=== PATIENT | female | born 1975 | race Caucasian/White ===

== ENCOUNTER 2022-08-27 16:30 | Emergency (ER) | payer BC ==
[2022-08-27 16:48] VITALS: BP 133/84; TEMP 97
--- NOTE | 2022-08-27 17:25 | ED ---
Abdominal Pain HPI - General Source: patient, RN notes reviewed Mode of arrival: wheelchair Limitations: no limitations <ShainaMarylou - Last Filed: 08/27/22 17:24> <Woody Troncoso - Last Filed: 08/28/22 06:05> - General Chief Complaint: Abdominal Pain Stated Complaint: Throat swelling Time Seen by Provider: 08/27/22 17:24 - History of Present Illness Initial Comments: Medical screening exam: Patient is a 47-year-old female presents to the emergency department with multiple complaints. Patient reports swelling and throat pain for the past 4 weeks. Denies injury. Describes the pain as a consistent pressure in her neck. States she had a CT of her neck at [facility] a couple weeks ago which was normal. States she has been following with her primary care provider who has been unable to diagnose her with any condition. She denies fever, chills,upper respiratory symptoms, trouble swallowing, pain with swallowing, drooling. Denies history of tobacco use. Reports occasional alcohol use. Denies family history of mouth and throat cancers. Does report intermittent history of GERD. Also reports using NSAIDs consistently for about 2 months. No chest pain or shortness of breath. Patient also reports a cramping abdominal pain in her upper abdomen with nausea. Patient feels that she is bloated. No vomiting, no diarrhea. (Marylou Merritt) This is a 47-year-old female with a past medical history including chronic back pain presents emergency department for throat pain and swelling. The patient stated that she initially had this symptom that started on [place] and she was seen at [facility]. A full workup including computed tomography scan was obtained and was normal. The patient was to follow-up with her primary care physician as well as the ENT however she did only follow-up with her primary care physician who "was not doing anything for her and not helping with things." The patient stated that her symptoms continued and worsened of the last several days and she felt as if she had trouble swallowing. The patient stated that this is continued in going on and she was concerned because she still had symptoms. 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 The patient has been off and on different NSAIDs as well as muscle relaxers for this however no relief has been obtained. The patient was however resting in bed comfortably with normal vital signs on my evaluation. The patient was not in any respiratory distress on my evaluation. (Woody Troncoso) - Related Data Previous Rx's Medication Instructions Recorded Famotidine [Pepcid] 20 mg PO BID #30 tablet 08/27/22 Ketorolac [Toradol] 10 mg PO TID #45 tab 08/27/22 dexAMETHasone [Decadron] 10 mg PO ONCE #2.5 tablet 08/27/22 Allergies Allergy/AdvReac Type Severity Reaction Status Date / Time azithromycin Allergy Rapid Verified 08/27/22 16:50 [From Zithromax Z-Tonio] Heart Rate Fish Containing Products Allergy Rapid Verified 08/27/22 16:50 [Fish] Heart Rate iodine Allergy Rash/Hives Verified 08/27/22 16:48 NSAIDS (Non-Steroidal Allergy Swelling Verified 08/27/22 16:50 Anti-Inflamma terbinafine Allergy Hallucinati Verified 08/27/22 16:50 ons Review of Systems ROS Other: All systems not noted in ROS Statement are negative. <Marylou Merritt - Last Filed: 08/27/22 17:24> ROS Other: All systems not noted in ROS Statement are negative. <Woody Troncoso - Last Filed: 08/28/22 06:05> ROS Statement: Those systems with pertinent positive or pertinent negative responses have been documented in the HPI. Past Medical History Past Medical History: CVA/TIA History of Any Multi-Drug Resistant Organisms: None Reported Additional Past Surgical History / Comment(s): pfo closure Past Psychological History: No Psychological Hx Reported Smoking Status: Never smoker Past Alcohol Use History: None Reported Past Drug Use History: None Reported <Marylou Merritt - Last Filed: 08/27/22 17:24> General Exam Limitations: no limitations <Marylou Merritt - Last Filed: 08/27/22 17:24> Limitations: no limitations General appearance: alert, in no apparent distress Head exam: Present: atraumatic, normocephalic, normal inspection Eye exam: Present: normal appearance, PERRL Pupils: Present: normal accommodation ENT exam: Present: normal exam, normal oropharynx, mucous membranes moist Neck exam: Present: normal inspection, full ROM Respiratory exam: Present: normal lung sounds bilaterally Cardiovascular Exam: Present: regular rate, normal rhythm, normal heart sounds GI/Abdominal exam: Present: soft, normal bowel sounds Extremities exam: Present: normal inspection, full ROM Back exam: Present: tenderness (Tenderness noted throughout her back secondary to her baseline chronic back pain.) Neurological exam: Present: alert, oriented X3, CN II-XII intact Psychiatric exam: Present: normal affect, normal mood Skin exam: Present: warm, dry <Woody Troncoso - Last Filed: 08/28/22 06:05> Course Vital Signs 08/27/22 08/28/22 16:43 00:04 Temperature 97 F L Pulse Rate 100 86 Respiratory 20 18 Rate Blood Pressure 133/84 O2 Sat by Pulse 99 95 Oximetry Medical Decision Making - Lab Data Result diagrams: 08/27/22 20:00 08/27/22 20:00 <Woody Troncoso - Last Filed: 08/28/22 06:05> - Medical Decision Making Was pt. sent in by a medical professional or institution (, PA, SPORT PSYCHOLOGIST, urgent care, hospital, or care home...) When possible be specific @ -No Did you speak to anyone other than the patient for history (EMS, parent, family, police, friend...)? What history was obtained from this source @ -Yes, patient's Did you review nursing and triage notes (agree or disagree)? Why? @ -I reviewed and agree with nursing and triage notes Were old charts reviewed (outside hosp., previous admission, EMS record, old EK G, old radiological studies, urgent care reports/EKG's, care home records)? Report findings @ -No old charts were reviewed Differential Diagnosis (chest pain, altered mental status, abdominal pain women, abdominal pain men, vaginal bleeding, weakness, fever, dyspnea, syncope, headache, dizziness, GI bleed, back pain, seizure, CVA, palpatations, mental health)? @ -Angioedema, neck swelling, soft tissue edema EKG interpreted by me (3pts min.). @ -None X-rays interpreted by me (1pt min.). @ -X-rays of the soft tissues of the neck was obtained and was interpreted by myself showing a narrowed posterior nasopharynx area but could relate to some posterior edema of the soft palate. There is no epiglottis. Due to this, a CT of the soft tissues of the neck was obtained. CT interpreted by me (1pt min.). @ -Soft tissues of the neck was obtained and was interpreted by myself showing a negative scan of the soft tissues. There was no discrete neck mass seen. U/S interpreted by me (1pt. min.). @ -None done What testing was considered but not performed or refused? (CT, X-rays, U/S, labs)? Why? @ -None What meds were considered but not given or refused? Why? @ -None Did you discuss the management of the patient with other professionals (professionals i.e. , PA, SPORT PSYCHOLOGIST, lab, RT, psych nurse, psychologist social, finance effectiveness manager, teacher, credit risk officer, watch case polisher)? Give summary @ -No Was smoking cessation discussed for >3mins.? @ -No Was critical care preformed (if so, how long)? @ -No Were there social determinants of health that impacted care today? How? (Homelessness, low income, unemployed, alcoholism, drug addiction, transportation, low edu. Level, literacy, decrease access to med. care, fdc, rehab)? @ -No Was there de-escalation of care discussed even if they declined (Discuss DNR or withdrawal of care, Hospice)? DNR status @ -No What co-morbidities impacted this encounter? (DM, HTN, Smoking, COPD, CAD, Cancer, CVA, ARF, Chemo, Hep., AIDS, mental health diagnosis, sleep apnea, morbid obesity)? @ -Chronic back pain Was patient admitted / discharged? Hospital course, mention meds given and route, prescriptions, significant lab abnormalities, going to OR and other pertinent info. @ -The patient was seen and evaluated in the emergency department. Physical exam, the patient was resting in bed without any obvious distress or any shortness of breath or airway compromise. All imaging and laboratory workup was within normal limits and negative. The patient did not have an etiology determined for her feelings of throat swelling. The patient had normal vital signs throughout and denied of any compromise of her airway. The patient did receive medications including Decadron, Pepcid and Toradol and she was also given a prescription for these. The patient was advised to follow-up with ENT for further workup and evaluation. The patient was deemed stable for discharge. Both the patient and her were agreeable with this plan and all other questions were answered. The patient was discharged home in stable condition with her . Undiagnosed new problem with uncertain prognosis? @ -No Drug Therapy requiring intensive monitoring for toxicity (Heparin, Nitro, Insulin, Cardizem)? @ -No Were any procedures done? @ -No Diagnosis/symptom? @ -Throat swelling sensation, NOS Acute, or Chronic, or Acute on Chronic? @ -Acute on chronic Uncomplicated (without systemic symptoms) or Complicated (systemic symptoms)? @ -Uncomplicated Side effects of treatment? @ -No Exacerbation, Progression, or Severe Exacerbation? @ -No Poses a threat to life or bodily function? How? (Chest pain, USA, AR, pneumonia, PE, COPD, DKA, ARF, appy, cholecystitis, CVA, Diverticulitis, Homicidal, Suicidal, threat to staff... and all critical care pts) @ -No (Woody Troncoso) - Lab Data Lab Results 08/27/22 08/27/22 08/27/22 Range/Units 20:00 20:00 20:00 WBC 10.7 H (3.8-10.6) k/uL RBC 4.91 (3.80-5.40) m/uL Hgb 15.4 (11.4-16.0) gm/dL Hct 43.6 (34.0-46.0) % MCV 88.7 (80.0-100.0) fL MCH 31.3 (25.0-35.0) pg MCHC 35.3 (31.0-37.0) g/dL RDW 13.0 (11.5-15.5) % Plt Count 173 (150-450) k/uL MPV 7.4 Neutrophils % 90 % Lymphocytes % 7 % Monocytes % 2 % Eosinophils % 1 % Basophils % 0 % Neutrophils # 9.6 H (1.3-7.7) k/uL Lymphocytes # 0.7 L (1.0-4.8) k/uL Monocytes # 0.3 (0-1.0) k/uL Eosinophils # 0.1 (0-0.7) k/uL Basophils # 0.0 (0-0.2) k/uL Sodium (137-145) mmol/L Potassium (3.5-5.1) mmol/L Chloride (98-107) mmol/L Carbon Dioxide (22-30) mmol/L Anion Gap mmol/L BUN (7-17) mg/dL Creatinine (0.52-1.04) mg/dL Est GFR (CKD-EPI)AfAm (>60 ml/min/1.73 sqM) Est GFR (CKD-EPI)NonAf (>60 ml/min/1.73 sqM) Glucose (74-99) mg/dL Calcium (8.4-10.2) mg/dL Total Bilirubin (0.2-1.3) mg/dL AST (14-36) U/L ALT (4-34) U/L Alkaline Phosphatase (38-126) U/L Total Protein (6.3-8.2) g/dL Albumin (3.5-5.0) g/dL Lipase (23-300) U/L Heterophile Antibody Negative (Negative) Influenza Type A (PCR) (Not Detectd) Influenza Type B (PCR) (Not Detectd) RSV (PCR) (Not Detectd) SARS-CoV-2 (PCR) (Not Detectd) Group A Strep (PCR) NOT DETECTED (Not Detectd) 08/27/22 08/27/22 Range/Units 20:00 20:00 WBC (3.8-10.6) k/uL RBC (3.80-5.40) m/uL Hgb (11.4-16.0) gm/dL Hct (34.0-46.0) % MCV (80.0-100.0) fL MCH (25.0-35.0) pg MCHC (31.0-37.0) g/dL RDW (11.5-15.5) % Plt Count (150-450) k/uL MPV Neutrophils % % Lymphocytes % % Monocytes % % Eosinophils % % Basophils % % Neutrophils # (1.3-7.7) k/uL Lymphocytes # (1.0-4.8) k/uL Monocytes # (0-1.0) k/uL Eosinophils # (0-0.7) k/uL Basophils # (0-0.2) k/uL Sodium 137 (137-145) mmol/L Potassium 3.9 (3.5-5.1) mmol/L Chloride 102 (98-107) mmol/L Carbon Dioxide 27 (22-30) mmol/L Anion Gap 8 mmol/L BUN 13 (7-17) mg/dL Creatinine 1.02 (0.52-1.04) mg/dL Est GFR (CKD-EPI)AfAm 77 (>60 ml/min/1.73 sqM) Est GFR (CKD-EPI)NonAf 67 (>60 ml/min/1.73 sqM) Glucose 104 H (74-99) mg/dL Calcium 9.7 (8.4-10.2) mg/dL Total Bilirubin 1.1 (0.2-1.3) mg/dL AST 43 H (14-36) U/L ALT 47 H (4-34) U/L Alkaline Phosphatase 80 (38-126) U/L Total Protein 6.7 (6.3-8.2) g/dL Albumin 4.2 (3.5-5.0) g/dL Lipase 104 (23-300) U/L Heterophile Antibody (Negative) Influenza Type A (PCR) Not Detected (Not Detectd) Influenza Type B (PCR) Not Detected (Not Detectd) RSV (PCR) Not Detected (Not Detectd) SARS-CoV-2 (PCR) Not Detected (Not Detectd) Group A Strep (PCR) (Not Detectd) Disposition <Marylou Merritt - Last Filed: 08/27/22 17:24> Is patient prescribed a controlled substance at d/c from ED?: No Time of Disposition: 23:45 <Woody Troncoso - Last Filed: 08/28/22 06:05> Clinical Impression: Neck swelling Disposition: HOME SELF-CARE Condition: Stable Instructions (If sedation given, give patient instructions): Shortness of Breath (ED) Prescriptions: dexAMETHasone [Decadron] 10 mg PO ONCE #2.5 tablet Famotidine [Pepcid] 20 mg PO BID #30 tablet Ketorolac [Toradol] 10 mg PO TID #45 tab Referrals: Yifan Quinones MD [Primary Care Provider] - 1-2 days Romeo Nevarez DO [Doctor of Osteopathic Medicine] - 1-2 days
--- NOTE | 2022-08-27 19:33 | XR ---
EXAMINATION TYPE: XR soft tissue neck DATE OF EXAM: 08/27/2022 COMPARISON: NONE HISTORY: Throat swelling TECHNIQUE: 2 views FINDINGS: Epiglottis is normal. Subglottic trachea is normal. Cervical vertebra have normal alignment . Prevertebral soft tissues appear normal. Tonsils and adenoids appear normal. There is narrowing of the posterior nasopharyngeal airway. IMPRESSION: There is narrowed posterior nasopharynx airway but could relate to some posterior edema o f the soft palate. Normal epiglottis.
[2022-08-27 20:10] LABS: Basophils % (A) 0 %; Eosinophils # (A) 0.1 k/uL (0-0.7); Eosinophils % (A) 1 %; HCT 43.6 % (34.0-46.0); HGB 15.4 gm/dL (11.4-16.0); Lymphocytes # (A) 0.7 k/uL (1.0-4.8); Lymphocytes % (A) 7 %; MCH 31.3 pg (25.0-35.0); MCHC 35.3 g/dL (31.0-37.0); MCV 88.7 fL (80.0-100.0); Mean Platelet Volume 7.4; Monocytes # (A) 0.3 k/uL (0-1.0); Monocytes % (A) 2 %; Neutrophils # (A) 9.6 k/uL (1.3-7.7); Neutrophils % (A) 90 %; Platelet Count 173 k/uL (150-450); RBC 4.91 m/uL (3.80-5.40); WBC 10.7 k/uL (3.8-10.6)
[2022-08-27 20:25] LABS: Albumin 4.2 g/dL (3.5-5.0); Calcium 9.7 mg/dL (8.4-10.2); Potassium 3.9 mmol/L (3.5-5.1); Total Bilirubin 1.1 mg/dL (0.2-1.3); Total Protein 6.7 g/dL (6.3-8.2)
[2022-08-27] MEDS ORDERED: KETOROLAC 15 MG/ML 1 ML VIAL IVP STA (22:56)
[2022-08-27] MEDS ORDERED: DEXAMETHASONE SOD PHOSPHATE 10 MG/ML 1 ML VIAL IVP STA (22:56)
[2022-08-27] MEDS ORDERED: FAMOTIDINE 20 MG/2 ML VIAL IV STA (22:56)
--- NOTE | 2022-08-27 23:30 | CT ---
EXAMINATION TYPE: CT soft tissue neck wo con DATE OF EXAM: 08/27/2022 COMPARISON: None HISTORY: sore throat CT DLP: 159.8 mGycm Automated exposure control for dose reduction was used. Images obtained from the thoracic inlet to the top of the orbits with no contrast. Orbital margins are intact. No evidence of retro-orbital mass. There is fairly normal aeration of the paranasal sinuses. The maxilla is intact. Tonsils and adenoids are within normal limits. The tongue appears normal. Epiglottis is normal. Prevertebral soft tissues are not enlarged. There is mild degen erative disc change at C5-6 with spurring. The subglottic trachea appears normal. No evidence of pharyngeal mass. Thyroid gland is fairly symmet kylee. No evidence of any significant cervical adenopathy. The submandibular salivary glands are symmetric. No evidence of parotid mass. IMPRESSION: Negative CT scan of the cervical soft tissues. No discrete neck mass.
[2022-08-28 00:05] VITALS: PULSE 86; RESP 18
== END 2022-08-28 00:23 | disposition home or self-care (01) ==
LOC: EC 16:30
DX: R22.1 Localized swelling, mass and lump, neck (principal); M50.322 Other cervical disc degeneration at C5-C6 level; I63.9 Cerebral infarction, unspecified; Z20.822 Contact with and (suspected) exposure to COVID-19; Z88.6 Allergy status to analgesic agent; Z91.013 Allergy to seafood; Z88.8 Allergy status to other drugs, medicaments and biological substances
CPT/HCPCS: 36415; 87651; 80053; 83690; 85025; 86308; 87636; 70360; 70490; 99284; 96374; 96375 ×2; J1100; J1885